=== PATIENT | female | born 1970 | race Two or more races ===

== ENCOUNTER 2023-04-23 12:15 | Emergency (ER) | payer OTHER ==
[~2023-04-23] VITALS: Ht 175.3 cm; Wt 86.2 kg
[2023-04-23] MEDS ORDERED: SYNTHROID112 MCG PO (12:53)
[2023-04-23] MEDS ORDERED: RESTORIL30 MG PO (12:54)
== END 2023-04-23 15:04 | disposition home or self-care (01) ==
LOC: ER 12:15
DX: S80.212A Abrasion, left knee, initial encounter (principal); S80.211A Abrasion, right knee, initial encounter; W18.30XA Fall on same level, unspecified, initial encounter; Y93.01 Activity, walking, marching and hiking; Y92.480 Sidewalk as the place of occurrence of the external cause; Y99.9 Unspecified external cause status

== ENCOUNTER 2023-06-11 09:26 | Emergency (ER) | payer OTHER ==
[~2023-06-11] VITALS: Ht 175.3 cm; Wt 90.7 kg
[~2023-06-11 09:26] MED LIST: RESTORIL30 MG PO; SYNTHROID112 MCG PO
== END 2023-06-11 14:13 | disposition home or self-care (01) ==
LOC: ER 09:26
PROVIDERS: General Practice
DX: M54.59 Other low back pain (principal)